=== PATIENT | male | born 2000 | race Caucasian/White ===

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

== ENCOUNTER 2024-12-11 09:09 | Emergency (ER) | payer OTHER ==
--- OUTSIDE RECORDS SUMMARY | 2024-12-11 09:13 | XMS REPORT | Continuity of Care Document ---
Author Name Unknown Address [address] [place] [address] [facility] Address [address] [place] [address] Care Team Providers Care Vocational Education Professional Name Role Phone ELHAM NAQVI JR Primary Care Physician GRIS Reynoso Attending Clinician Unavailable Jadiel SUPERVISOR VACUUM METALIZINGGris Attending Clinician GRIS DUVALL Admitting Clinician Unavailable Payers Payer Name Policy Type Policy Number Effective Date Expirati on Date Source [facility] PPO/POS [id number] 2023 00:00:00 Allergies, Adverse Reactions, Alerts Allergy Name Allergy Type Status Severity Reaction(s) Onset Date Inactive Date Treating Clinician Comments Source NO KNOWN ALLERGIE S Drug Class Active [facility] Social History Social Habit Start Date Stop Date Quantity Comments Source Sexual orientation U [facility] Sex Assigned At 2000 00:00:00 2000 00:00:00 [facility] Smoking Status Start Date Stop Date Source Tobacco smoking consumption unknown [facility] Medications Ordered Medication Name Filled Medication Name Start Date Stop Date Current Medication? Ordering Clinician Indication Dosage Frequency Signature (SIG) Comments Components Source iopamidol (ISOVUE 370-500 mL) injection 100 mL 07-31 08:45: 00 07-31 08:45 :00 No [id number] 100mL 100 mL, Intravenou s, ONCE, 1 dose, On 08/01/23 at 0345, Routine [facility] famotidine (PEPCID (PF)) injection 20 mg 07-31 06:30: 00 07-31 06:50 :00 No 20mg 20 mg, Slow IV Push, ONCE, 1 dose, On 08/01/23 at 0130, JULIO [facility] dicyclomine 20 mg tablet 07-31 00:00: 00 Yes [id number] 20mg Take 1 tablet by mouth every 6 (six) hours as needed for Abdominal pain. [facility] ondansetron (ZOFRAN) 4 mg tablet 07-31 00:00: 00 Yes [id number] 4mg Take 1 tablet by mouth every 8 (eight) hours as needed for Nausea and Vomiting (N/V). [facility] pantoprazol e (PROTONIX) 40 mg EC tablet 07-31 00:00: 00 Yes [id number] 40mg Take 1 tablet by mouth in the morning. [facility] Vital Signs Vital Name Observation Time Observation Value Comments S ource Systolic blood pressure 2023-08-01 10:00:00 130 mm[Hg] [facility] Diastolic blood pressure 2023-08-01 10:00:00 100 mm[Hg] [facility] Heart rate 2023-08-01 10:00:00 97 /min [facility] Respiratory rate 2023-08-01 10:00:00 19 /min [facility] Oxygen saturation in Arterial blood by Pulse oximetry 2023-08-01 10:00:00 98 /min [facility] Body temperature 2023-08-01 06:14:00 37.22 Alexia [facility] Body height 2023-08-01 06:14:00 172.7 cm [facility] Body weight 2023-08-01 06:14:00 122.471 kg [facility] BMI 2023-08-01 06:14:00 41.05 kg/m2 [facility] Procedures Procedure Date / Time Performed Performing Clinicia n Source URINALYSIS 2023-08-01 08:51:00 Gris Duvall [facility] CT ABDOMEN PELVIS W CONTRAST 2023-08-01 07:55:07 Gris Duvall [facility] COMP. METABOLIC PANEL (31178) 2023-08-01 06:44:00 Gris Duvall [facility] CBC WITH DIFF 2023-08-01 06:44:00 Gris Duvall [facility] Encounters Start Date/Time End Date/Time Encounter Type Admission Type Attending Clinicians Care Facility Care Department Encounter ID Source 2023-08-01 01:30:00 2023-08-01 05:55:00 Emergency X GRIS DUVALL [facility] [id number] [facility] 2023-08-01 01:30:00 2023-08-01 05:55:00 Emergency Georgie Duvall[facility] [id number] [facility] 2020-05-21 00:00:00 2020-05-21 00:00:00 Outpatient [facility] [id number] [facility] Results Test Description Test Time Test Comments Results Result Comments Source CT ABDOMEN PELVIS W CONTRAST 08:45:24 Ordering physician: GRIS DUVALL Indication: Acute abdominal pain COMPARISON: None TECHNIQUE: Axial images of the abdomen and pelvis are performed followingadministration of intravenous contrast material. Images were reformatted inthe coronal and sagittal plane. CT scan was performed according to ALARA(as low as reasonably achievable) policy. FINDINGS: The lung bases are clear. The liver, gallbladder, spleen, adrenalglands and pancreas are within normal limits. The kidneys are normal inappearance bilaterally without hydronephrosis. No abdominal aortic aneurysmor dissection is appreciated. There is no free fluid in the pelvis. There is no bowel obstruction,widespread diverticulosis or acute diverticulitis. The appendix isidentified and within normal limits. ?Bone windows through the abdomen andpelvis demonstrate no osseous destructive lesion. [facility] Notes Date/Time Note Provider Source 2023-08-01 05:53:15 Prescriptions provided Pt verbalized understanding of instructions, pt awake alert oriented, resp reg unlabored, skin w/d, color appropriate for race, moves all ext well,pt encouraged to follow up with pcp. Advised to seek medical attention for new/prolonged/worsening of symptoms. No adverse reaction to meds given in ER noted upon discharge. PIV d'cd, dressing to site, catheter in tact. Awake, alert oriented, resp reg unlabored, skin w/d, pt leaving amb with steady gait, in no apparent distress. T [facility] 2023-08-01 01:08:39 Pt arrives ambulatory to ED c/o abd pain that began @ aprox 1800 today. He reports that this comes and goes over the last 4-6 months. He says that when he gets these pains he vomits and the pain will go away for awhile but then the pain will build back up until he vomits again. He says this time he was @ work and he had to leave because the pain was too much for him, so he came in. [facility] 2023-08-01 00:57:00 [facility] ED Transfer of Care Note. Off-going Physician:SUPERVISOR VACUUM METALIZING JADIEL Time of Transfer of Care: 5:39 AM Summary: Emil Hernandez is a 23 year old male presenting with chief complaint of abdominal pain. Pending prior to disposition: Imaging Current interventions: Medications famotidine (PEPCID (PF)) injection 20 mg (20 mg Slow IV Push Given 08/01/23 0150) iopamidol (ISOVUE 370-500 mL) injection 100 mL (100 mL Intravenous Given 08/01/23 0345) Results: Labs Reviewed CBC WITH DIFF - Abnormal; Notable for the following components: Result Value WBC 13.38 (*) PLT 463 (*) GRAN MAT x10 3 (ANC) 10.99 (*) IMM GRAN x10 3 0.08 (*) All other components within normal limits COMP. METABOLIC PANEL (38757) - Abnormal; Notable for the following components: ALTv 52 (*) All other components within normal limits URINALYSIS - Abnormal; Notable for the following components: KETONES 20 mg/dL (*) UROBILIN 2.0 mg/dL (*) RBC/HPF 5 (*) BACTERIA Few (*) All other components within normal limits CT ABDOMEN PELVIS W CONTRAST Final Result No acute process identified in the abdomen or pelvis. RL: [id number] AFC: [id number] Procedures: Procedures Additional Notes: ED Course as of 08/01/23539 Sat Aug 01, 2023 [address] Scruggs pending labs and CT scan [PD] ED Course User Index [PD] Gris Duvall, SUPERVISOR VACUUM METALIZING Diagnosis/Impression as of 08/01/23539 Epigastric pain Dehydration Medical Decision Making Emil Hernandez is a 23 year old male who presents to the ED for evaluation of abdominal pain Problems Addressed: Dehydration: acute illness or injury Epigastric pain: chronic illness or injury Amount and/or Complexity of Data Reviewed Labs: ordered. Decision-making details documented in ED Course. Radiology: ordered. Decision-making details documented in ED Course. Risk OTC drugs. Prescription drug management. Risk Details: Will refer to GI DR BENJAMIN Disposition: Discharged Home Social Determinants of Health: none. Diagnoses that have been ruled out: None Diagnoses that are still under consideration: None Final diagnoses: Epigastric pain Dehydration ED Disposition ED Disposition Disch - Home Condition Stable Comment -- Osvaldo Scruggs MD 08/01/23539 T [facility]
[2024-12-11] MEDS ORDERED: KETOROLAC 30 MG/ML INJ ONE (09:44)
[2024-12-11] MEDS ORDERED: HYDROCODONE/APAP 10/325 TAB ONE (09:44)
--- NOTE | 2024-12-11 09:58 | RAD REPORT ---
Exam:Knee Right 3 View HISTORY: Right knee pain FINDINGS: No fracture or dislocation seen Small joint effusion. Large spur extends off the anterior superior aspect of the patella. Edema is present within the subcu taneous tissues.
--- NOTE | 2024-12-11 10:11 | ER ---
Nurse's Notes [facility] Name: Emil Hernandez Age: 24 yrs Sex: Male : 2000 Arrival Date: 12/11/2024 Time: 09:09 Bed 10 Private MD: Diagnosis: Effusion, right knee Presentation: 12/11 09:31 Chief complaint: Patient states: right knee pain since Thursday , denies injury. iw Coronavirus screen: At this time, the client does not indicate any symptoms associated with coronavirus-19. Ebola Screen: No symptoms or risks identified at this time. Initial Sepsis Screen: Does the patient meet any 2 criteria? No. Patient's initial sepsis screen is negative. Does the patient have a suspected source of infection? No. Patient's initial sepsis screen is negative. Risk Assessment: Do you want to hurt yourself or someone else? Patient reports no desire to harm self or others. 09:31 Method Of Arrival: Ambulatory iw 09:31 Acuity: WOO 4 iw Triage Assessment: 10:24 General: Appears in no apparent distress. Behavior is calm, cooperative. Pain: iw Complains of pain in right knee. Historical: - Allergies: 09:35 No Known Allergies; iw - Home Meds: 09:35 fluoxetine 40 mg oral capsule daily [Active]; propranolol 20 mg Oral tablet daily iw [Active]; - PMHx: 09:35 Anxiety; iw Screenin:25 [facility] ED Fall Risk Assessment (Adult) History of falling in the last 3 months, iw including since admission Yes- single mechanical fall (1 pt) Confusion or Disorientation No (0 pts) Intoxicated or Sedated No (0 pts) Impaired Gait No (0 pts) Mobility Assist Device Used No (0 pt) Altered Elimination No (0 pt) Score/Fall Risk Level 0 - 2 = Low Risk Oriented to surroundings, Maintained a safe environment. Abuse screen: Denies threats or abuse. Denies injuries from another. Nutritional screening: No deficits noted. Tuberculosis screening: No symptoms or risk factors identified. Assessment: 10:24 Reassessment: Patient appears in no apparent distress at this time. Patient and/or iw family updated on plan of care and expected duration. Pain level reassessed. Vital Signs: 09:39 BP 127 / 82; Pulse 95; Resp 16; Temp 98.1(O); Pulse Ox 99% ; Weight 136.08 kg; Height 5 iw ft. 8 in. ; Pain 7/10; 09:43 Temp 98.4; pm7 10:24 BP 147 / 81; Pulse 74; Resp 16; Pulse Ox 97% on R/A; Pain 5/10; iw 09:39 Body Mass Index 45.62 (136.08 kg, 172.72 cm) iw 09:39 Pain Scale: Adult iw 10:24 Pain Scale: Adult iw ED Course: 09:10 Patient arrived in ED. ts1 09:12 Luis Fernando Pelaez FNP-C [facility]. dr5 09:12 Onofre Burnette MD is Attending Physician. dr5 09:21 Maricruz Dubon RN is Primary Nurse. iw 09:35 Triage completed. iw 09:40 Door closed. Moved to private room. Pillow given. Head of bed elevated. Client placed pm7 on continuous cardiac and pulse oximetry monitoring. NIBP monitoring applied. 09:41 Knee Right 3 View XRAY In Process Unspecified. EDMS 10:10 Manan Haynes MD is Referral Physician. dr5 10:10 Diogenes Ramos MD is Referral Physician. dr5 10:24 Arm band placed on. iw 10:24 No provider procedures requiring assistance completed. Patient did not have IV access iw during this emergency room visit. Jakub wrap to right knee. Administered Medications: 10:01 Drug: Ketorolac IM 30 mg IM once Route: IM; Site: right deltoid; iw 10:02 Follow up: Response: No adverse reaction iw 10:01 Drug: [place] PO 10 mg-325 mg 1 tabs PO once Route: PO; iw 10:02 Follow up: Response: No adverse reaction iw Outcome: 10:10 Discharge ordered by . dr5 10:24 Discharged to home ambulatory, with family, iw 10:24 Condition: good 10:24 Discharge instructions given to patient, family, Instructed on discharge instructions, follow up and referral plans. medication usage, Demonstrated understanding of instructions, follow-up care, medications, Prescriptions given X 1, 10:25 Patient left the ED. iw Signatures: Dispatcher [employer] EDMS Maricruz Dubon RN RN iw Anna Mathews, KHURRAM PAS ts1 Luis Fernando Pelaez FNP-C PATCH SANDER-Cdr5 Roxy Tenorio pm7 Corrections: (The following items were deleted from the chart) 10:02 09:39 BP 127 / 82; Pulse 95bpm; Pulse Ox 99%; 136.08 kg; Height 5 ft. 8 in.; BMI: 45.6; iw Pain 10/27, Adult; pm7
--- NOTE | 2024-12-11 10:11 | EDPHYS ---
Physician Documentation [facility] Name: Emil Hernandez Age: 24 yrs Sex: Male : 2000 Arrival Date: 12/11/2024 Time: 09:09 Bed 10 Private MD: ED Physician Onofre Burnette HPI: 12/11 09:18 This 24 yrs old Male presents to ER via Unassigned with complaints of Knee dr5 Pain. 09:18 Onset: The symptoms/episode began/occurred 5 day(s) ago. Patient is a 24-year-old male dr5 with history of depression and anxiety coming in with right knee pain that started on Thursday, December 06, 2024. Patient reports that he had pain when he stood up. Patient denies hearing a pop or click when standing. Patient reports that he has been walking on his knee for a week and he is able to bear weight and tolerate pain when his leg is straight. Patient reports pain is above the patella on right side. No pain below patella or back of knee.. Historical: - Allergies: 09:35 No Known Allergies; iw - Home Meds: 09:35 fluoxetine 40 mg oral capsule daily [Active]; propranolol 20 mg Oral tablet daily iw [Active]; - PMHx: 09:35 Anxiety; iw ROS: 09:18 Constitutional: as per hpi dr5 Exam: 09:18 Constitutional: This is a well developed, well nourished patient who is awake, alert, dr5 and in no acute distress. Head/Face: Normocephalic, atraumatic. Eyes: Pupils equal round and reactive to light, extra-ocular motions intact. Lids and lashes normal. Conjunctiva and sclera are non-icteric and not injected. Cornea within normal limits. Periorbital areas with no swelling, redness, or edema. Neck: Trachea midline, no thyromegaly or masses palpated, and no cervical lymphadenopathy. Supple, full range of motion without nuchal rigidity, or vertebral point tenderness. No Meningismus. Chest/axilla: Normal chest wall appearance and motion. Nontender with no deformity. No lesions are appreciated. Cardiovascular: Regular rate and rhythm with a normal S1 and S2. Normal PMI, no JVD. No pulse deficits. Respiratory: Lungs have equal breath sounds bilaterally, clear to auscultation. No rales, rhonchi or wheezes noted. No increased work of breathing, no retractions or nasal flaring. Abdomen/GI: Soft, non-tender, non-distended Back: No spinal tenderness. No costovertebral tenderness. Full range of motion. Skin: Warm, dry with normal turgor. Normal color with no rashes, no lesions, and no evidence of cellulitis. Neuro: Awake and alert, GCS 15, oriented to person, place, time, and situation. Cranial nerves II-XII grossly intact. Motor strength 5/5 in all extremities. Sensory grossly intact. Cerebellar exam normal. Normal gait. 09:18 Musculoskeletal/extremity: Extremities: grossly normal except: noted in the right knee: pain, swelling, tenderness, Above patella, ROM: no acute changes, intact in all extremities, Circulation is intact in all extremities. Sensation intact. Weight bearing: can bear weight with assistance only, uses walker, Negative anterior / posterior drawer test. No laxatively of ligaments noted.. Vital Signs: 09:39 BP 127 / 82; Pulse 95; Resp 16; Temp 98.1(O); Pulse Ox 99% ; Weight 136.08 kg; Height 5 iw ft. 8 in. ; Pain 7/10; 09:43 Temp 98.4; pm7 10:24 BP 147 / 81; Pulse 74; Resp 16; Pulse Ox 97% on R/A; Pain 5/10; iw 09:39 Body Mass Index 45.62 (136.08 kg, 172.72 cm) iw 09:39 Pain Scale: Adult iw 10:24 Pain Scale: Adult iw Procedures: 10:24 Splinting: Splint applied to right knee using jakub wrap, applied by nurse. Examined by dr5 me, post splint application: neurovascular intact, 2+ distal pulses palpable, brisk capillary refill noted, Patient tolerated well. MDM: 09:12 Medical Screening Exam initiated dr5 10:22 Differential diagnosis: abrasion, contusion, fracture, sprain, strain. Data reviewed: rust vital signs, nurses notes, radiologic studies, plain films. Consideration of Admission/Observation Escalation of care including admission/observation considered. Escalation considered patient found to have patella fracture or dislocation. I considered the following discharge prescriptions or medication management in the emergency department I discussed and recommended Over The Counter medications, Medications were administered in the Emergency Department. See MAR. Independent interpretation of the following test(s) in the Emergency Department X-Ray: My interpretation is Independent rotation of x-ray does not reveal fracture. . Test considered but Not performed: MRI: MRI considered but not emergent. Will have orthopedic doctor evaluate and determine need for MRI.. Historians other than the Patient: Spouse/Significant Other: Significant other at bedside. Care significantly affected by the following chronic conditions: Anxiety. Care significantly affected by the following Social Determinants of Health: Poor access to healthcare and/or lack of insurance, Poor access to transportation, Problems related to employment. Counseling: I had a detailed discussion with the patient and/or guardian regarding the historical points, exam findings, and any diagnostic results supporting the discharge/admit diagnosis, the presence of at least one elevated blood pressure reading (>120/80) during this emergency department visit, radiology results, the need for outpatient follow up, for definitive care, a orthopedic surgeon, to return to the emergency department if symptoms worsen or persist or if there are any questions or concerns that arise at home. Medication response: Campbell, Toradol. Response to treatment: the patient's symptoms have markedly improved after treatment. Special discussion: I have referred the patient to see his PCP for further evaluation of high blood pressure. I discussed with the patient/guardian in detail that at this point there is no indication for admission to the hospital. It is understood, however, that if the symptoms persist or worsen the patient needs to return immediately for re-evaluation. Based on the history and exam findings, there is no indication for further emergent testing or inpatient evaluation. I discussed with the patient/guardian the need to see the orthopedic surgeon for further evaluation of the symptoms. ED course: Jakub wrap applied in the ER. CD made and given to patient as well as x-ray report printed out given to patient to take with him to orthopedic doctor. Recommended RICE. All questions answered. Strict ER precautions given. Patient reports he will make an appointment with orthopedics this week.. 12/11 09:15 Order name: Knee Right 3 View XRAY; Complete Time: 10:00 dr5 12/11 10:01 Order name: Jakub Wrap; Complete Time: : dr5 Administered Medications: 10: Drug: Ketorolac IM 30 mg IM once Route: IM; Site: right deltoid; iw 10:02 Follow up: Response: No adverse reaction iw 10: Drug: Campbell PO 10 mg-325 mg 1 tabs PO once Route: PO; iw 10:02 Follow up: Response: No adverse reaction iw Disposition: 10:36 Co-signature as Attending Physician, Onofre Burnette MD I reviewed the patient's care rn provided by the Advanced Practice Provider and agree with the diagnosis and treatment plan. Disposition Summary: 12/11/24 10:10 Discharge Ordered Notes: Location: Home dr5 Condition: Stable dr5 Diagnosis - Effusion, right knee dr5 Followup: dr5 - With: Emergency Department - When: As needed - Reason: Worsening of condition Followup: dr5 - With: Manan Haynes MD - When: 1 week - Reason: Recheck today's complaints, Continuance of care, Re-evaluation by your physician Followup: dr5 - With: Diogenes Ramos MD - When: 1 week - Reason: Recheck today's complaints, Continuance of care, Re-evaluation by your physician Discharge Instructions: - Discharge Summary Sheet dr5 - Knee Effusion dr5 - RICE Therapy for Routine Care of Injuries dr5 Forms: - Medication Reconciliation Form dr5 - Prescription Opioid Use dr5 - Patient Portal Instructions dr5 - Leadership Thank You Letter dr5 Prescriptions: - Tramadol 50 mg Oral Tablet - take 1 tablet ORAL route every 8 hours as needed; 12 tablet; Refills: 0, dr5 Product Selection Permitted Signatures: Dispatcher [employer] Maricruz Bruno RN RN iw Nieto, Roman, MD MD rn Rhodes, Dustin, [employer] LIFEGUARD-C A[employer] LIFEGUARD-Cdr5
[2024-12-11 10:33] VITALS: TEMP 98.4
[2024-12-11 10:35] VITALS: BP 147/81; O2SAT 97
== END 2024-12-11 10:25 | disposition home or self-care (01) ==
LOC: ER 09:09
DX: M25.461 Effusion, right knee (principal)
CPT/HCPCS: 96372; 99284